=== PATIENT | female | born 1965 ===

== ENCOUNTER 2022-10-28 06:23 | Emergency (ER) | payer OTHER, MEDICAID ==
[2022-10-28 06:42] VITALS: BP 158/95
[2022-10-28 07:02] VITALS: PULSE 68
== END 2022-10-28 08:15 | disposition home or self-care (01) ==
LOC: CC.ED 06:23
DX: J06.9 Acute upper respiratory infection, unspecified (principal); B97.89 Other viral agents as the cause of diseases classified elsewhere; E66.9 Obesity, unspecified; Z68.41 Body mass index [BMI] 40.0-44.9, adult
CPT/HCPCS: 71046; 99283